=== PATIENT | male | born 1970 | race Caucasian/White ===

== ENCOUNTER 2017-03-02 09:30 | Emergency (ER) | payer OTHER ==
[2017-03-02] MEDS ORDERED: Ketorolac 60 MG/2 ML SDV IM ONE (09:54)
--- NOTE | 2017-03-02 10:53 | EDM.PDOC ---
ED HPI GENERAL MEDICAL PROBLEM - General Chief Complaint: Lower Extremity Injury/Pain Stated Complaint: LT KNEE HURTS Time Seen by Provider: 03/02/17 09:37 Source of Information: Reports: Patient History Limitations: Reports: No Limitations - History of Present Illness INITIAL COMMENTS - FREE TEXT/NARRATIVE: History of present illness: []Patient presents with left medial knee pain that is severe. He is been climbing tanks week and denies any specific injury, falls or twisting. He states his knee feels stable but is very painful when he bears weight Review of systems: As per history of present illness and below otherwise all systems reviewed and negative. Past medical history: As per history of present illness and as reviewed below otherwise noncontributory. Surgical history: As per history of present illness and as reviewed below otherwise noncontributory. Social history: No reported history of drug or alcohol abuse. Family history: As per history of present illness and as reviewed below otherwise noncontributory. Physical exam: General: Well developed, well nourished in NAD HEENT: Atraumatic, normocephalic, pupils reactive, negative for conjunctival pallor or scleral icterus, mucous membranes moist, throat clear, neck supple, nontender, trachea midline. Lungs: Clear to auscultation, breath sounds equal bilaterally, chest nontender. Heart: S1S2, regular, negative for clicks, rubs, or JVD. Abdomen: Soft, nondistended, nontender. Negative for masses or hepatosplenomegaly. Negative for costovertebral tenderness. Pelvis: Stable nontender. Genitourinary: Deferred. Rectal: Deferred. Extremities: Atraumatic, left knee shows no effusion is full range of motion with tenderness to palpation of the medial joint line posteriorly without a mass. He has no thigh pain or distal edema negative for cords or calf pain. Neurovascular unremarkable. Neuro: Awake, alert, oriented. Cranial nerves II through XII unremarkable. Cerebellum unremarkable. Motor and sensory unremarkable throughout. Exam nonfocal. Diagnostics: []X-ray showing normal knee no fractures or effusion Therapeutics: []Toradol IM given in the ED Impression: []Medial knee pain Plan: []Tramadol for pain follow-up with orthopedics team ice 20 minutes at a time as much as possible and return if symptoms worsen or change Definitive disposition and diagnosis as appropriate pending reevaluation and review of above. Left Knee Pain Score (Numeric/FACES): 4 - Related Data Allergies Allergy/AdvReac Type Severity Reaction Status Date / Time No Known Allergies Allergy Verified 03/02/17 09:42 Home Meds: Home Meds Lisinopril/Hydrochlorothiazide [Lisinopril-Hctz 20-25 mg Tab] 1 each PO DAILY [History] traMADol [Ultram] 50 mg PO Q8H PRN #12 tablet 03/02/17 [Rx] Past Medical History Cardiovascular History: Reports: Hypertension Social & Family History - Family History Family Medical History: Noncontributory - Tobacco Use Smoking Status *Q: Current Every Day Smoker Years of Tobacco use: 15 Packs/Tins Daily: 1 - Recreational Drug Use Recreational Drug Use: No Review of Systems - Review of Systems Review Of Systems: See Below (See history of present illness) ED EXAM, GENERAL - Physical Exam Exam: See Below (See history of present illness) Course - Vital Signs Last Recorded V/S: Last Vital Signs Temp 36.8 C 03/02/17 09:42 Pulse 84 03/02/17 09:42 Resp 18 03/02/17 09:42 BP 136/87 03/02/17 09:42 Pulse Ox 97 03/02/17 09:42 - Orders/Labs/Meds Orders: Active Orders 24 hr Category Date Time Status Knee 3V Lt [CR] Stat Exams 03/02/17 09:53 Taken Meds: Medications Discontinued Medications Generic Name Dose Route Start Last Admin Trade Name Freq PRN Reason Stop Dose Admin Ketorolac Tromethamine 60 mg 03/02/17 09:54 Toradol IM 03/02/17 09:55 ONETIME ONE Departure - Departure Time of Disposition: 10:52 Disposition: Home, Self-Care 01 Condition: Good Clinical Impression: Left medial knee pain - Discharge Information Prescriptions: traMADol [Ultram] 50 mg PO Q8H PRN #12 tablet PRN Reason: Pain Instructions: Tramadol tablets Referrals: PCP,None [Primary Care Provider] - Forms: ED Department Discharge Additional Instructions: The following information is given to patients seen in the emergency department who are being discharged to home. This information is to outline your options for follow-up care. We provide all patients seen in our emergency department with a follow-up referral. The need for follow-up, as well as the timing and circumstances, are variable depending upon the specifics of your emergency department visit. If you don't have a primary care physician on staff, we will provide you with a referral. We always advise you to contact your personal physician following an emergency department visit to inform them of the circumstance of the visit and for follow-up with them and/or the need for any referrals to a consulting specialist. The emergency department will also refer you to a specialist when appropriate. This referral assures that you have the opportunity for follow-up care with a specialist. All of these measure are taken in an effort to provide you with optimal care, which includes your follow-up. Under all circumstances we always encourage you to contact your private physician who remains a resource for coordinating your care. When calling for follow-up care, please make the office aware that this follow-up is from your recent emergency room visit. If for any reason you are refused follow-up, please contact the [facility] at and asked to speak to the emergency department charge nurse. Motrin and tramadol for pain as directed, ice 20 minutes at time as much as possible, follow-up with orthopedics if needed. [facility] Professional Building [address] [place] [address], [address] [place] [address] - My Orders Last 24 Hours: My Active Orders 03/02/17 09:53 Knee 3V Lt [CR] Stat - Assessment/Plan Last 24 Hours: My Active Orders 03/02/17 09:53 Knee 3V Lt [CR] Stat
[2017-03-02 11:15] VITALS: BP 131/85
--- NOTE | 2017-03-03 13:06 | CR ---
EXAM DATE: 03/02/17 PATIENT'S AGE: 46 Patient: JUVENAL SPARKS Facility: [place], [place] Site . Site : [id number] Study: XRay Knee Left [id number]/13/2017 10:26:20 AM Ordering Physician: Dakotah Ma Final Report: INDICATION: Left knee pain. Decreased range of motion. FINDINGS: Three views of the left knee were obtained. There is no fracture seen or dislocation. There is no left knee joint effusion. The knee joint space compartments are maintained. IMPRESSION: No acute bone abnormality. Dictated by Rajan Ortiz MD @ 03/02/2017 10:40:02 AM Dictated by: Rajan Ortiz MD @ 03/02/2017 10:40:19 (Electronic Signature) Report Signed by Proxy. [facility]
== END 2017-03-02 11:15 | disposition home or self-care (01) ==
LOC: MW.ED 09:30
DX: M25.562 Pain in left knee (principal); F17.210 Nicotine dependence, cigarettes, uncomplicated; Z79.899 Other long term (current) drug therapy
CPT/HCPCS: 73562; 96372; 99283; J1885